=== PATIENT | male | born 1965 | race Caucasian/White ===

== ENCOUNTER 2016-12-07 15:23 | Emergency (ER) | payer OTHER ==
[2016-12-07 15:23] VITALS: BMI 34.7
[2016-12-07 15:44] VITALS: TEMP 98.5
--- NOTE | 2016-12-07 17:25 | US ---
HISTORY: left testicular pain TECHNIQUE: Realtime sonography through the scrotum with color and doppler flow. COMPARISON: None Available. FINDINGS: RIGHT TESTICLE: Measures 4.3 x 1.9 x 2.9 cm. Normal echotexture and flow. RIGHT EPIDIDYMIS: Epididymal head measures 0.8 x 1 x 1 cm. Grossly unremarkable appearance with normal flow. LEFT TESTICLE: Measures 4.3 x 1.9 x 3.1 cm. Normal echotexture and flow. LEFT EPIDIDYMIS: Epididymal head measures 0.9 x 0.8 x 1.4 cm. Grossly unremarkable appearance with normal flow. HYDROCELE: Small bilateral hydroceles seen. VARICOCELE: None. OTHER FINDINGS: Small calcifications seen at the right scrotum adjacent to the testicle may represent calcification in the epididymis or scrotum wall calcification due to prior infection or inflammatory process. IMPRESSION: No evidence of testicular torsion. Small bilateral hydroceles. Small foci of calcification adjacent to the right testicle likely represent a sequela of prior infection or inflammatory process.
--- NOTE | 2016-12-07 17:37 | C.PDOC ---
History Of Present Illness 51 year old male, otherwise well, presents to the ED with complaints of left testicular pain beginning three days ago. Patient states after sexual intercourse, upon removing the condom, he noted "dark blood" inside of the condom. He denies pain at that time however a twinge of pain began the next morning on the top of the left testicle. Patient denies fever, chills, swelling , dysuria, or hematuria. Time Seen by Provider: 12/07/16 15:50 Chief Complaint (Nursing): Male Genitourinary History Per: Patient History/Exam Limitations: no limitations Onset/Duration Of Symptoms: Days (3 days ) Current Symptoms Are (Timing): Still Present Severity: Mild Pain Scale Rating Of: 3 Quality Of Discomfort: "Pain" Associated Symptoms: denies: Fever, Chills, Nausea, Vomiting, Urinary Symptoms Recent travel outside of the [employer] [place]: No Past Medical History Reviewed: Historical Data, Nursing Documentation, Vital Signs Vital Signs: Last Vital Signs Temp 98.5 F 12/07/16 15:40 Pulse 78 12/07/16 17:41 Resp 17 12/07/16 17:41 BP 128/75 12/07/16 17:41 Pulse Ox 98 12/07/16 17:41 Family History: States: Unknown Family Hx - Social History Hx Tobacco Use: No Hx Alcohol Use: No Hx Substance Use: No - Immunization History Hx Tetanus Toxoid Vaccination: No Hx Influenza Vaccination: No Hx Pneumococcal Vaccination: No Review Of Systems Constitutional: Negative for: Fever, Chills Cardiovascular: Negative for: Chest Pain Respiratory: Negative for: Shortness of Breath Gastrointestinal: Negative for: Nausea, Vomiting, Abdominal Pain, Diarrhea Genitourinary: Positive for: Other (left testicular pain). Negative for: Dysuria, Hematuria, Penile Discharge Physical Exam - Physical Exam Appears: Non-toxic, No Acute Distress Skin: Warm, Dry Head: Atraumatic Eye(s): bilateral: Normal Inspection, EOMI Oral Mucosa: Moist Neck: Supple Chest: Symmetrical, No Deformity Cardiovascular: Rhythm Regular Respiratory: Normal Breath Sounds, No Rhonchi, No Wheezing Gastrointestinal/Abdominal: Soft, No Tenderness, No Distention, No Guarding, No Rebound Male Genital: Normal Inspection, No Testicular Tenderness, No Testicular Swelling, No Inguinal Tenderness, No Inguinal Swelling, No Scrotal Swelling Neurological/Psych: Oriented x3, Normal Speech, Normal Cognition ED Course And Treatment O2 Sat by Pulse Oximetry: 97 (room air ) Progress Note: Patient was given Motrin and Tylenol. Disposition Counseled Patient/Family Regarding: Studies Performed, Need For Followup, Rx Given - Disposition Referrals: at [facility] [Outside] Sharon Tubbs MD [Staff Provider] - Disposition: HOME/ ROUTINE Disposition Time: 17:35 Condition: STABLE Prescriptions: Ibuprofen [Motrin] 600 mg PO TID #15 tab Instructions: Testicle Pain (ED) Forms: [employer] (Czech) - POA Present On Arrival: None - Clinical Impression Clinical Impression: Testicle pain - Scribe Statement The provider has reviewed the documentation as recorded by the Scribe Monse oJ All medical record entries made by the Scribe were at my direction and personally dictated by me. I have reviewed the chart and agree that the record accurately reflects my personal performance of the history, physical exam, medical decision making, and the department course for this patient. I have also personally directed, reviewed, and agree with the discharge instructions and disposition.
[2016-12-07 17:42] VITALS: BP 128/75; PULSE 78; RESP 17
[2016-12-07 17:50] VITALS: O2SAT 97
== END 2016-12-07 17:42 | disposition home or self-care (01) ==
LOC: C.ER 15:23
DX: N50.812 Left testicular pain (principal)